=== PATIENT | male | born 1970 | race Caucasian/White ===

== ENCOUNTER 2020-02-03 20:30 | Emergency (ER) | payer MEDICARE, MEDICAID ==
[~2020-02-03] VITALS: Ht 182.9 cm; Wt 77.1 kg
[2020-02-03 20:40] VITALS: BP 116/71
--- NOTE | 2020-02-03 20:40 | NUR ---
ED Nurse Note: Pt walked into ED for c/o feeling depressed and is seeking help. Pt notes he has become more depressed today and did have thoughts of harming himself. Pt states he had a plan to jump off a bridge or walk into traffic today, but did not follow through with plan. Pt has hx of previous sucidide attempt in the past. Pt denies auditory or visual hallucinations. No trauma noted to pt. Pt denies drug or alcohol use today. Pt also denies cough, sob or fever. Pt appears disheveled and unkept. Pt is otherwise aaox4, breathing is normal and unlabored, no cardiac distress. Pt placed in room with safety measures in place.
[2020-02-03 21:16] LABS: APPEARANCE,URINE CLEAR; BILIRUBIN, URINE NEGATIVE (NEGATIVE); COLOR,URINE PALE YELLOW; GLUCOSE, URINE (UA) NEGATIVE (NEGATIVE); KETONES,URINE NEGATIVE (NEGATIVE); LEUKOCYTE ESTERASE ,URINE NEGATIVE (NEGATIVE); NITRITE,URINE NEGATIVE (NEGATIVE); PH,URINE 7 (4.5-8.0); PROTEIN,URINE NEGATIVE (NEGATIVE); UROBILINOGEN,URINE NORMAL MG/DL (0.0-1.0)
[2020-02-03 21:37] LABS: BASOPHILS % (AUTO) 1.1 % (0.0-2.0); EOSINOPHILS % (AUTO) 1.4 % (0.0-3.0); HEMATOCRIT 40.9 % (42.0-52.0); HEMOGLOBIN 12.7 G/DL (14.2-18.0); LYMPHOCYTES % (AUTO) 20.4 % (20.0-45.0); MEAN CORPUSCULAR VOLUME 95 FL (80-99); MONOCYTES % (AUTO) 8.3 % (1.0-10.0); NEUTROPHILS % (AUTO) 68.8 % (45.0-75.0); PLATELET COUNT 240 K/UL (150-450); RED BLOOD COUNT 4.33 M/UL (4.70-6.10); RED CELL DISTRIBUTION WIDTH 13.2 % (11.6-14.8); WHITE BLOOD COUNT 7.3 K/UL (4.8-10.8)
[2020-02-03 21:47] LABS: ANION GAP 8 mmol/L (5-15); BLOOD UREA NITROGEN 19 mg/dL (7-18); CALCIUM 8.8 MG/DL (8.5-10.1); CARBON DIOXIDE 33 MMOL/L (21-32); CHLORIDE 104 MMOL/L (98-107); CREATININE 0.9 MG/DL (0.55-1.30); POTASSIUM 3.5 MMOL/L (3.5-5.1); SODIUM 144 MMOL/L (136-145)
[2020-02-03 21:52] LABS: ALANINE AMINOTRANSFERASE 22 U/L (12-78); ALBUMIN 3.8 G/DL (3.4-5.0); ALBUMIN/GLOBULIN RATIO 1.2 (1.0-2.7); ALKALINE PHOSPHATASE 66 U/L (46-116); ASPARTATE AMINO TRANSFERASE 16 U/L (15-37); BILIRUBIN,TOTAL 0.2 MG/DL (0.2-1.0); CREATINE KINASE 173 U/L (26-308)
--- NOTE | 2020-02-03 23:00 | NUR ---
ED Nurse Note: Pt is sleeping in bed, NAD. RN monitoring pt.
--- NOTE | 2020-02-03 23:02 | Emergency Room Report ---
History of Present Illness General Chief Complaint: Behavioral Complaint Source: Patient Present Illness HPI The patient is brought to the emergency department by EMS with complaints of suicidal ideation. He is states that the feeling of desperation developed over the course of today. As he was walking around he was thinking about walking in front of traffic. He also across the bridge did not have any reason to have any reinforcement and consider jumping off. He does not identify any life event that led to this feeling of desperation. He is has dark thoughts. He denies visual or auditory hallucinations at this time. He does have a history of depression. He was treated transiently with antidepressants after a suicide attempt. He feels that they did not help him at that time. He denies doing any drugs or alcohol. He does not smoke. He last ate lunch today. Plan - walk into traffic or jump off bridge (found one). [place] prior attempt [place] where he [place]. Feels similar at this time. No fevers, chills, sore throat, chest pain, palpitations, nausea, vomiting, diarrhea, dysuria, abdominal pain, shortness of breath, joint pain, visual changes, dizziness, headache. He has some open ulcers in the right dorsum of his foot. His tetanus was last 5 years ago. Allergies: Coded Allergies: No Known Allergies (Unverified , 02/03/20) COVID-19 Screening Contact w/high risk pt: No Recent Travel to affected area: No Experienced COVID-19 symptoms?: No COVID-19 Testing performed GLASS EMBOSSER: No Patient History Past Medical History: see triage record Social History: Denies: smoking, alcohol use, drug use Social History Narrative with friends, but on the streets at the moment - [facility]. 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 Nursing Documentation: PMH: Agreed; PSxH: Agreed Nursing Documentation-PMH History Of Psychiatric Problem: Yes - depression Review of Systems All Other Systems: negative except mentioned in HPI Physical Exam Vital Signs Date Time Temp Pulse Resp B/P (MAP) Pulse Ox O2 Delivery O2 Flow Rate FiO2 02/03/20 20:34 98.2 62 19 116/71 (86) 98 Room Air Sp02 EP Interpretation: reviewed, normal General Appearance: no apparent distress, GCS 15, non-toxic, thin, other - Unwashed and covered with dirt Head: normocephalic Eyes: bilateral eye normal inspection, bilateral eye PERRL, bilateral eye EOMI ENT: moist mucus membranes Neck: supple Respiratory: chest non-tender, lungs clear, normal breath sounds Cardiovascular #1: regular rate, rhythm, no edema Cardiovascular #2: 2+ radial (R), 2+ dorsalis pedis (R) Gastrointestinal: normal inspection, normal bowel sounds, non tender, no mass, non-distended, scaphoid Genitourinary: no CVA tenderness Musculoskeletal: back normal, normal range of motion, no calf tenderness, gait/ station normal Neurologic: alert, motor strength/tone normal, receptionist III-XII nml as tested, DTRs symmetric, oriented x3, sensory intact, cerebellar normal Psychiatric: depressed affect Suicide Risk Assessment: Suicidal Ideation: Yes Had intent to initiate attempt: Yes Pt's plan for suicide attempt: Yes Has means to complete attempt: Yes Skin: warm/dry, abrasion - Right dorsum of foot, other - Wasta with third Medical Decision Making Diagnostic Impression: Primary Impression: Suicidal ideation ER Course The patient presents with SI with plan but voluntary. Differential includes exacerbation of depression, electrolyte imbalance, exacerbation of social situation amongst others. Patient has no psychotic tendencies at this time. Evaluation with EKG and labs. Concern of high risk as the patient has a specific plan and the means to carry it out. Also he has prior suicide attempt. Patient declines medication at this time. EKG suha. Labs unremarkable. Medically clear for psychiatric transfer (voluntary) @ 23:00. Sign out to Dr. Ramachandran. (Patient transferred to [facility].) Laboratory Tests Test 02/03/20 20:40 02/03/20 21:05 White Blood Count 7.3 K/UL (4.8-10.8) Red Blood Count 4.33 M/UL (4.70-6.10) L Hemoglobin 12.7 G/DL (14.2-18.0) L Hematocrit 40.9 % (42.0-52.0) L Mean Corpuscular Volume 95 FL (80-99) Mean Corpuscular Hemoglobin 29.2 PG (27.0-31.0) Mean Corpuscular Hemoglobin Concent 30.9 G/DL (32.0-36.0) L Red Cell Distribution Width 13.2 % (11.6-14.8) Platelet Count 240 K/UL (150-450) Mean Platelet Volume 8.0 FL (6.5-10.1) Neutrophils (%) (Auto) 68.8 % (45.0-75.0) Lymphocytes (%) (Auto) 20.4 % (20.0-45.0) Monocytes (%) (Auto) 8.3 % (1.0-10.0) Eosinophils (%) (Auto) 1.4 % (0.0-3.0) Basophils (%) (Auto) 1.1 % (0.0-2.0) Sodium Level 144 MMOL/L (136-145) Potassium Level 3.5 MMOL/L (3.5-5.1) Chloride Level 104 MMOL/L (98-107) Carbon Dioxide Level 33 MMOL/L (21-32) H Anion Gap 8 mmol/L (5-15) Blood Urea Nitrogen 19 mg/dL (7-18) H Creatinine 0.9 MG/DL (0.55-1.30) Estimated Glomerular Filtration Rate > 60 mL/min (>60) Glucose Level 114 MG/DL (74-106) H Calcium Level 8.8 MG/DL (8.5-10.1) Total Bilirubin 0.2 MG/DL (0.2-1.0) Aspartate Amino Transferase (AST) 16 U/L (15-37) Alanine Aminotransferase (ALT) 22 U/L (12-78) Alkaline Phosphatase 66 U/L (46-116) Total Creatine Kinase 173 U/L (26-308) Total Protein 6.9 G/DL (6.4-8.2) Albumin 3.8 G/DL (3.4-5.0) Globulin 3.1 g/dL Albumin/Globulin Ratio 1.2 (1.0-2.7) Salicylates Level 1.2 ug/mL (2.8-20) L Acetaminophen Level < 2 MCG/ML (10-30) L Serum Alcohol < 3 mg/dL Urine Color Pale yellow Urine Appearance Clear Urine pH 7 (4.5-8.0) Urine Specific Sullivan 1.010 (1.005-1.035) Urine Protein Negative (NEGATIVE) Urine Glucose (UA) Negative (NEGATIVE) Urine Ketones Negative (NEGATIVE) Urine Blood Negative (NEGATIVE) Urine Nitrite Negative (NEGATIVE) Urine Bilirubin Negative (NEGATIVE) Urine Urobilinogen Normal MG/DL (0.0-1.0) Urine Leukocyte Esterase Negative (NEGATIVE) Urine Opiates Screen Negative (NEGATIVE) Urine Barbiturates Screen Negative (NEGATIVE) Phencyclidine (PCP) Screen Negative (NEGATIVE) Urine Amphetamines Screen Negative (NEGATIVE) Urine Benzodiazepines Screen Negative (NEGATIVE) Urine Cocaine Screen Negative (NEGATIVE) Urine Marijuana (THC) Screen Negative (NEGATIVE) EKG Diagnostic Results Rate: bradycardiac Rhythm: NSR ST Segments: no acute changes Rhythm Strip Diag. Results EP Interpretation: yes Rhythm: no PVC's, no ectopy, other - Bradycardia Last Vital Signs Date Time Temp Pulse Resp B/P (MAP) Pulse Ox O2 Delivery O2 Flow Rate FiO2 02/03/20 20:40 98.2 62 19 116/71 98 Room Air Status: improved Disposition: PSYCH HOSP/UNIT Condition: Stable Referrals: NOT CHOSEN IPA/,REFERRING (PCP) Thompson Bhardwaj MD February 03, 2020 23:02
--- NOTE | 2020-02-03 23:42 | NUR ---
Spoke with Dre at [facility], face sheet, dictation and EKG faxed to [phone] as requested
--- NOTE | 2020-02-04 01:30 | NUR ---
ED Nurse Note: Pt ambulated to restroom with RN assistance. No complications. Pt is amulatory with steady gait.
[2020-02-04 04:30] VITALS: BP 102/64
--- NOTE | 2020-02-04 04:30 | NUR ---
ED Nurse Note: Pt dislodged IV, IV completely removed at this time. No complications.
--- NOTE | 2020-02-04 04:30 | NUR ---
ED Nurse Note: Pt is resting in bed with eyes closed. Pt is cooperative with staff. Vital signs assessed, see flow sheet.
--- NOTE | 2020-02-04 04:52 | NUR ---
Maksim called back from [place]: patient to go to [facility] [place]([id number] ,[place], [address])Room#310-B Accepting is Call report [phone] [id number]-[facility]
--- NOTE | 2020-02-04 04:55 | NUR ---
ED Nurse Note: Spoke with LYLA Pimentel at [facility] and gave report on pt.
--- NOTE | 2020-02-04 05:40 | NUR ---
Patient trasnported to [facility], alert/oriented, cooperative. All belongings with patient.
== END 2020-02-04 05:40 ==
LOC: EMR 20:45
DX: R45.851 Suicidal ideations (principal); F32.9 Major depressive disorder, single episode, unspecified; L97.519 Non-pressure chronic ulcer of other part of right foot with unspecified severity; R00.1 Bradycardia, unspecified
CPT/HCPCS: 36415; 80053; 80307; 81003; 82550; 85025; 93005; 99285; G0480